=== PATIENT | female | born 1960 | race Caucasian/White ===

== ENCOUNTER 2016-04-28 10:18 | Observation (INO) | payer OTHER ==
[2016-04-28 11:04] LABS: HEMOGLOBIN 16.9 gm/dl (12.3-15.3); RED BLOOD COUNT 5.49 M/UL (4.00-5.10); WHITE BLOOD COUNT 5.8 K/UL (4.5-11.0)
[2016-04-28 11:19] LABS: BUN/CREATININE RATIO 17 (0-10)
[2016-04-28] MEDS ORDERED: HUMALOG100 UNIT/1 SQ ×2 (21:45→21:46)
[2016-04-28] MEDS ORDERED: HUMALOG100 UNIT/2 SQ (21:45)
[2016-04-28] MEDS ORDERED: TESSALON PERLE100 MG PO (21:47)
[2016-04-28] MEDS ORDERED: VENTOLIN/PROVE0.5 ML INH ×2 (21:47→21:49)
[2016-04-28] MEDS ORDERED: LANTUS100 UNIT/1 SQ (21:47)
[2016-04-28] MEDS ORDERED: CELEXA10 MG PO (21:47)
[2016-04-28] MEDS ORDERED: NEURONTIN 400400 MG PO (21:48)
[2016-04-28] MEDS ORDERED: LORTAB 5-325 M1 EACH PO (21:48)
[2016-04-28] MEDS ORDERED: BUSPAR 10MG10 MG PO (21:49)
[2016-08-09] MEDS ORDERED: MEDROL DOSEPAK 24 MG PO ×2 (17:25→18:05)
[2016-08-09] MEDS ORDERED: DULERA 100 MCG8.8 GM INH (18:07)
[2016-08-09] MEDS ORDERED: LEVEMIR FL100 UNIT/1 SQ (18:10)
== END 2016-04-29 00:20 | disposition left against medical advice (07) ==
LOC: ER1 10:18 → ZEROF 15:35 → M/S 20:48
PROVIDERS: Emergency Medicine; ADMIT Family Medicine
DX: J44.1 Chronic obstructive pulmonary disease with (acute) exacerbation (principal); J96.11 Chronic respiratory failure with hypoxia; D69.6 Thrombocytopenia, unspecified; D75.1 Secondary polycythemia; E11.9 Type 2 diabetes mellitus without complications; I11.0 Hypertensive heart disease with heart failure; I50.32 Chronic diastolic (congestive) heart failure; F41.9 Anxiety disorder, unspecified; E66.9 Obesity, unspecified; F17.210 Nicotine dependence, cigarettes, uncomplicated; Z82.5 Family history of asthma and other chronic lower respiratory diseases; Z82.49 Family history of ischemic heart disease and other diseases of the circulatory system; Z88.5 Allergy status to narcotic agent; Z90.49 Acquired absence of other specified parts of digestive tract; Z98.51 Tubal ligation status
CPT/HCPCS: 36415; 71020; 80053; 82803; 82962; 83605; 84484; 85025; 87040; 93005; 94640; 94660; 94664; 96361; 96372; 96374; 96376; 99284; G0378; J1815; J2930; J7040

== ENCOUNTER 2016-08-06 22:12 | Emergency (ER) | payer OTHER ==
[~2016-08-06 22:12] MED LIST: BUSPAR 10MG10 MG PO; CELEXA10 MG PO; HUMALOG100 UNIT/1 SQ; HUMALOG100 UNIT/2 SQ; LANTUS100 UNIT/1 SQ; LORTAB 5-325 M1 EACH PO; NEURONTIN 400400 MG PO; TESSALON PERLE100 MG PO; VENTOLIN/PROVE0.5 ML INH
[2016-08-09] MEDS ORDERED: MEDROL DOSEPAK 24 MG PO ×2 (17:25→18:05)
[2016-08-09] MEDS ORDERED: DULERA 100 MCG8.8 GM INH (18:07)
[2016-08-09] MEDS ORDERED: LEVEMIR FL100 UNIT/1 SQ (18:10)
== END 2016-08-07 00:03 | disposition left against medical advice (07) ==
LOC: ER1 22:12
DX: R06.02 Shortness of breath (principal); R05 Cough; R09.89 Other specified symptoms and signs involving the circulatory and respiratory systems; Z53.21 Procedure and treatment not carried out due to patient leaving prior to being seen by health care provider
CPT/HCPCS: 93005

== ENCOUNTER 2020-02-27 04:15 | Emergency (ER) | payer OTHER ==
[~2020-02-27 04:15] MED LIST changes: +ALBUTEROL2.5 MG/3 M INH; +ATROVENT HFA12.9 GM INH; +AZELASTINE137 MCG/0.; +AZITHROMYCIN500 MG PO; +CEFUROXIME500 MG PO; +CIPRO500 MG PO; +CLARITIN10 M2 PO; +COLACE 100MG C100 MG PO; +COMBIVENT0.074 GM/I INH; +CRESTOR 10 MG T10 MG PO; +CRESTOR10 MG PO; +CYMBALTA60 MG PO; +DOXYCYCLINE HY100 MG PO; +DULERA 100 MCG8.8 GM INH; +ECOTRIN81 MG PO; +FLOVENT 220.1 GM/INH INH; +FLOXIN 0.3% OTIC5 ML OP; +GLUCOPHAGE1000 MG PO; +HYDROCODON-ACE1 EAC2 PO; +HYDROCODON-ACE1 EAC6 PO; +HYSINGLA ER30 MG PO; +IBUPROFEN800 MG PO; +IPRAT-ALBUT 0.5-3 ML INH; +IPRATROPIU0.2 MG/1 M INH; +JARDIANCE25 MG PO; +LEVAQUIN500 MG PO; +LEVEMIR FL100 UNIT/1 SQ; +LISINOPRIL20 MG PO; +MEDROL DOSEPAK 24 MG PO; +MEDROL4 MG PO; +NEURONTIN 300300 MG PO; +NEURONTIN800 MG PO; +NICOTINE PATCH1 EAC2 TD; +OMNICEF 300 MG300 MG PO; +PATANOL OP SOLN5 ML EYEBOTH; +POLYMYXIN B-TMP10 ML OP; +PREDNISOLONE OD; +PREDNISONE 20 M20 MG GT; +PREDNISONE 20 M20 MG PO; +PREDNISONE 50 M50 MG PO; +PREDNISONE PO; +PREDNISONE10 MG PO; +PREDNISONE20 MG PO; +PREDNISONE50 MG PO; +PROTONIX40 MG PO; +PROVENTIL HFA6.7 GM INH; +ROBITUSSIN DM UD5 ML PO; +ROBITUSSIN100 MG/51 PO; +SPIRIVA RESPIMAT4 GM INH; +SULFACETAMIDE OD; +SYMBICORT 160-1 INHA INH; +SYMBICORT 16010.2 GM INH; +TAMIFLU75 MG PO; +VIBRAMYCIN 100100 MG PO; +VIBRAMYCIN100 MG PO; +ZITHROMAX1 GM PO; +ZITHROMAX250 MG PO; +ZOFRAN 4 MG TAB4 MG PO
[2020-02-27 04:44] LABS: HEMOGLOBIN 16.2 gm/dl (12.3-15.3); RED BLOOD COUNT 5.15 M/UL (4.00-5.10); WHITE BLOOD COUNT 7.6 K/UL (4.5-11.0)
[2020-02-27 05:07] LABS: BUN/CREATININE RATIO 25 (0-10)
[2020-02-27] MEDS ORDERED: PREDNISONE20 MG PO (05:49)
== END 2020-02-27 06:00 | disposition home or self-care (01) ==
LOC: ER1 04:15
PROVIDERS: Family Medicine
DX: J44.1 Chronic obstructive pulmonary disease with (acute) exacerbation (principal); I11.0 Hypertensive heart disease with heart failure; I50.9 Heart failure, unspecified; E11.9 Type 2 diabetes mellitus without complications; E66.9 Obesity, unspecified; F17.200 Nicotine dependence, unspecified, uncomplicated; Z88.5 Allergy status to narcotic agent
CPT/HCPCS: 80053; 82550; 82553; 84484; 85025; 93005; 96374; 99285; J2930

== ENCOUNTER 2020-03-11 04:01 | Emergency (ER) | payer OTHER ==
[2020-03-11 06:32] LABS: HEMOGLOBIN 16.3 gm/dl (12.3-15.3); RED BLOOD COUNT 5.12 M/UL (4.00-5.10); WHITE BLOOD COUNT 6.9 K/UL (4.5-11.0)
[2020-03-11 06:54] LABS: BUN/CREATININE RATIO 26 (0-10)
== END 2020-03-11 06:42 | disposition home or self-care (01) ==
LOC: ER1 04:01
PROVIDERS: Family Medicine
DX: J44.9 Chronic obstructive pulmonary disease, unspecified (principal); E11.9 Type 2 diabetes mellitus without complications; F17.200 Nicotine dependence, unspecified, uncomplicated; Z99.81 Dependence on supplemental oxygen; Z88.5 Allergy status to narcotic agent; Z79.899 Other long term (current) drug therapy; Z79.4 Long term (current) use of insulin; Z53.20 Procedure and treatment not carried out because of patient's decision for unspecified reasons
CPT/HCPCS: 80053; 82550; 82553; 83605; 83874; 83880; 84484; 85025; 93005; 94664; 99285; J2930

== ENCOUNTER 2020-04-11 18:05 | Emergency (ER) | payer OTHER | END 2020-04-11 20:32 | disposition left against medical advice (07) | LOC: ER1 18:05 | DX: Z53.21 Procedure and treatment not carried out due to patient leaving prior to being seen by health care provider (principal) | CPT/HCPCS: 71045 ==

== ENCOUNTER 2020-04-17 17:14 | Emergency (ER) | payer OTHER ==
[2020-04-17 19:29] LABS: HEMOGLOBIN 15.5 gm/dl (12.3-15.3); RED BLOOD COUNT 4.87 M/UL (4.00-5.10); WHITE BLOOD COUNT 8.4 K/UL (4.5-11.0)
[2020-04-17 19:43] LABS: BUN/CREATININE RATIO 23 (0-10)
[2020-04-17] MEDS ORDERED: PREDNISONE20 MG PO (19:59)
[2020-04-17] MEDS ORDERED: DOXYCYCLINE HY100 MG PO (19:59)
[2020-04-17] MEDS ORDERED: IPRAT-ALBUT 0.5-3 ML INH (20:00)
== END 2020-04-17 20:23 | disposition home or self-care (01) ==
LOC: ER1 17:14
PROVIDERS: Family Medicine
DX: J44.0 Chronic obstructive pulmonary disease with (acute) lower respiratory infection (principal); E11.65 Type 2 diabetes mellitus with hyperglycemia; E66.01 Morbid (severe) obesity due to excess calories; J18.9 Pneumonia, unspecified organism; R09.02 Hypoxemia; F17.200 Nicotine dependence, unspecified, uncomplicated; Z88.5 Allergy status to narcotic agent; Z79.4 Long term (current) use of insulin
CPT/HCPCS: 71045; 80048; 82550; 82553; 83874; 83880; 84484; 85025; 93005; 94640; 94664; 96374; 99285; J2930

== ENCOUNTER 2020-05-04 10:25 | Emergency (ER) | payer OTHER ==
[2020-05-04] MEDS ORDERED: VIBRAMYCIN100 MG PO (11:04)
[2020-05-04] MEDS ORDERED: IPRAT-ALBUT 0.5-3 ML INH (11:14)
== END 2020-05-04 11:30 | disposition home or self-care (01) ==
LOC: ER1 10:25
DX: J44.1 Chronic obstructive pulmonary disease with (acute) exacerbation (principal); J20.9 Acute bronchitis, unspecified; J44.0 Chronic obstructive pulmonary disease with (acute) lower respiratory infection; I11.0 Hypertensive heart disease with heart failure; I50.9 Heart failure, unspecified; E11.9 Type 2 diabetes mellitus without complications; E78.5 Hyperlipidemia, unspecified; K21.9 Gastro-esophageal reflux disease without esophagitis; Z88.5 Allergy status to narcotic agent
CPT/HCPCS: 94664; 96374; 99284; J1100

== ENCOUNTER 2020-05-13 14:11 | Emergency (ER) | payer OTHER ==
[2020-05-13 15:14] LABS: HEMOGLOBIN 15.6 gm/dl (12.3-15.3); RED BLOOD COUNT 4.93 M/UL (4.00-5.10); WHITE BLOOD COUNT 6.3 K/UL (4.5-11.0)
[2020-05-13 15:57] LABS: BUN/CREATININE RATIO 22 (0-10)
[2020-05-13] MEDS ORDERED: PREDNISONE20 MG PO (16:19)
[2020-05-13] MEDS ORDERED: AZITHROMYCIN250 MG PO (16:19)
== END 2020-05-13 16:31 | disposition home or self-care (01) ==
LOC: ER1 14:11
PROVIDERS: Family Medicine
DX: J44.1 Chronic obstructive pulmonary disease with (acute) exacerbation (principal); E10.65 Type 1 diabetes mellitus with hyperglycemia; F17.210 Nicotine dependence, cigarettes, uncomplicated; Z88.5 Allergy status to narcotic agent; Z79.899 Other long term (current) drug therapy
CPT/HCPCS: 71045; 80053; 82550; 82553; 83874; 83880; 84484; 85025; 94664; 94760; 96374; 99285; J2930

== ENCOUNTER 2020-06-24 21:12 | Emergency (ER) | payer OTHER ==
[~2020-06-24 21:12] MED LIST changes: +AZITHROMYCIN250 MG PO
[2020-06-24 22:32] LABS: HEMOGLOBIN 15.3 gm/dl (12.3-15.3); RED BLOOD COUNT 4.8 M/UL (4.00-5.10); WHITE BLOOD COUNT 6.8 K/UL (4.5-11.0)
[2020-06-24 22:55] LABS: BUN/CREATININE RATIO 25 (0-10)
[2020-06-25] MEDS ORDERED: PREDNISONE20 MG PO (01:59)
== END 2020-06-25 02:05 | disposition home or self-care (01) ==
LOC: ER1 21:12
PROVIDERS: Physician Assistant
DX: J44.1 Chronic obstructive pulmonary disease with (acute) exacerbation (principal); J96.11 Chronic respiratory failure with hypoxia; E11.65 Type 2 diabetes mellitus with hyperglycemia; E78.5 Hyperlipidemia, unspecified; I50.9 Heart failure, unspecified; Z90.49 Acquired absence of other specified parts of digestive tract; F17.200 Nicotine dependence, unspecified, uncomplicated; Z88.5 Allergy status to narcotic agent
CPT/HCPCS: 71045; 80053; 82550; 82553; 83874; 83880; 84484; 85025; 85610; 85730; 93005; 94640; 94664; 96374; 99285; J2930

== ENCOUNTER 2020-07-06 06:45 | Emergency (ER) | payer OTHER ==
[2020-07-06 08:13] LABS: HEMOGLOBIN 15.4 gm/dl (12.3-15.3); RED BLOOD COUNT 4.91 M/UL (4.00-5.10); WHITE BLOOD COUNT 7.1 K/UL (4.5-11.0)
[2020-07-06 08:30] LABS: BUN/CREATININE RATIO 25 (0-10)
== END 2020-07-06 08:04 | disposition left against medical advice (07) ==
LOC: ER1 06:45
PROVIDERS: Internal Medicine
DX: J44.1 Chronic obstructive pulmonary disease with (acute) exacerbation (principal); I11.0 Hypertensive heart disease with heart failure; I50.9 Heart failure, unspecified; E11.9 Type 2 diabetes mellitus without complications; F17.210 Nicotine dependence, cigarettes, uncomplicated; Z90.49 Acquired absence of other specified parts of digestive tract; Z88.5 Allergy status to narcotic agent
CPT/HCPCS: 36600; 71046; 80053; 82803; 83880; 84484; 85025; 94664; 96374; 99285; J2930

== ENCOUNTER 2020-07-17 19:36 | Emergency (ER) | payer OTHER ==
[2020-07-17] MEDS ORDERED: PREDNISONE 20 M20 MG PO (20:58)
[2020-07-17] MEDS ORDERED: IPRAT-ALBUT 0.5-3 ML INH (20:59)
[2020-07-17] MEDS ORDERED: CLARITIN10 M2 PO (20:59)
== END 2020-07-17 19:38 | disposition home or self-care (01) ==
LOC: ER1 19:36
DX: J44.1 Chronic obstructive pulmonary disease with (acute) exacerbation (principal); E11.9 Type 2 diabetes mellitus without complications; F17.200 Nicotine dependence, unspecified, uncomplicated; Z88.5 Allergy status to narcotic agent; Z79.899 Other long term (current) drug therapy
CPT/HCPCS: 94664; 94760; 96372; 99284; J2930

== ENCOUNTER 2020-08-13 07:06 | Emergency (ER) | payer OTHER ==
[2020-08-13 08:14] LABS: HEMOGLOBIN 15.8 gm/dl (12.3-15.3); RED BLOOD COUNT 4.96 M/UL (4.00-5.10); WHITE BLOOD COUNT 6.1 K/UL (4.5-11.0)
[2020-08-13 08:41] LABS: BUN/CREATININE RATIO 28 (0-10)
[2020-08-13] MEDS ORDERED: PREDNISONE20 MG PO (09:24)
[2020-08-13] MEDS ORDERED: DOXYCYCLINE HY100 MG PO (09:24)
== END 2020-08-13 09:33 | disposition home or self-care (01) ==
LOC: ER1 07:06
PROVIDERS: Family Medicine
DX: J96.11 Chronic respiratory failure with hypoxia (principal); J44.1 Chronic obstructive pulmonary disease with (acute) exacerbation; E11.65 Type 2 diabetes mellitus with hyperglycemia; I10 Essential (primary) hypertension; F17.200 Nicotine dependence, unspecified, uncomplicated; Z88.5 Allergy status to narcotic agent
CPT/HCPCS: 71045; 80053; 82550; 82553; 83874; 83880; 84484; 85025; 93005; 94644; 94664; 94760; 96374; 99285; J2930

== ENCOUNTER 2020-08-30 22:42 | Emergency (ER) | payer OTHER ==
[2020-08-31 01:45] LABS: HEMOGLOBIN 16.3 gm/dl (12.3-15.3); RED BLOOD COUNT 5.15 M/UL (4.00-5.10); WHITE BLOOD COUNT 8.3 K/UL (4.5-11.0)
[2020-08-31 02:03] LABS: BUN/CREATININE RATIO 24 (0-10)
[2020-08-31] MEDS ORDERED: PROAIR DIGIHAL90 MCG INH (02:50)
== END 2020-08-31 03:05 | disposition home or self-care (01) ==
LOC: ER1 22:42
PROVIDERS: Emergency Medicine
DX: J44.1 Chronic obstructive pulmonary disease with (acute) exacerbation (principal); F17.200 Nicotine dependence, unspecified, uncomplicated; I11.0 Hypertensive heart disease with heart failure; I50.9 Heart failure, unspecified; E11.9 Type 2 diabetes mellitus without complications; Z20.822 Contact with and (suspected) exposure to COVID-19
CPT/HCPCS: 0240U; 71045; 80053; 82550; 82553; 83605; 84484; 85025; 93005; 94664; 99285; J2930; Q9967

== ENCOUNTER 2020-09-10 17:30 | Emergency (ER) | payer OTHER ==
[~2020-09-10 17:30] MED LIST changes: +PROAIR DIGIHAL90 MCG INH
[2020-09-10] MEDS ORDERED: PREDNISONE 20 M20 MG PO (18:41)
[2020-09-10] MEDS ORDERED: VIBRAMYCIN 100100 MG PO (18:41)
== END 2020-09-10 19:00 | disposition home or self-care (01) ==
LOC: ER1 17:30
DX: J44.1 Chronic obstructive pulmonary disease with (acute) exacerbation (principal)
CPT/HCPCS: 94640; 94664; 96374; 99284; J2930

== ENCOUNTER 2020-09-27 11:16 | Emergency (ER) | payer OTHER ==
[2020-09-27 13:32] LABS: HEMOGLOBIN 15.8 gm/dl (12.3-15.3); RED BLOOD COUNT 4.97 M/UL (4.00-5.10); WHITE BLOOD COUNT 9.2 K/UL (4.5-11.0)
[2020-09-27 14:06] LABS: BUN/CREATININE RATIO 24 (0-10)
== END 2020-09-27 12:20 | disposition left against medical advice (07) ==
LOC: ER1 11:16
PROVIDERS: Emergency Medicine
DX: R06.02 Shortness of breath (principal); J44.9 Chronic obstructive pulmonary disease, unspecified; I11.0 Hypertensive heart disease with heart failure; I50.9 Heart failure, unspecified; E11.9 Type 2 diabetes mellitus without complications
CPT/HCPCS: 80053; 82550; 82553; 83735; 83874; 83880; 84484; 85025; 94640; 94664; 96374; 99285; J2930

== ENCOUNTER 2020-10-01 09:37 | Emergency (ER) | payer OTHER ==
[2020-10-01 11:00] LABS: HEMOGLOBIN 15.8 gm/dl (12.3-15.3); RED BLOOD COUNT 5.02 M/UL (4.00-5.10); WHITE BLOOD COUNT 7.9 K/UL (4.5-11.0)
[2020-10-01 11:33] LABS: BUN/CREATININE RATIO 24 (0-10)
[2020-10-01] MEDS ORDERED: PREDNISONE50 MG PO (12:35)
[2020-10-01] MEDS ORDERED: DOXYCYCLINE HY100 M3 PO (12:35)
== END 2020-10-01 12:48 | disposition left against medical advice (07) ==
LOC: ER1 09:37
PROVIDERS: Emergency Medicine
DX: J44.9 Chronic obstructive pulmonary disease, unspecified (principal); Z20.822 Contact with and (suspected) exposure to COVID-19; Z87.891 Personal history of nicotine dependence
CPT/HCPCS: 71045; 80053; 82550; 82553; 83874; 83880; 84484; 85025; 93005; 96374; 99285; J2930; U0002

== ENCOUNTER 2020-11-19 14:25 | Emergency (ER) | payer OTHER ==
[~2020-11-19 14:25] MED LIST changes: +DOXYCYCLINE HY100 M3 PO
[2020-11-19 16:00] LABS: HEMOGLOBIN 16.3 gm/dl (12.3-15.3); RED BLOOD COUNT 5.07 M/UL (4.00-5.10); WHITE BLOOD COUNT 7.7 K/UL (4.5-11.0)
[2020-11-19 16:23] LABS: BUN/CREATININE RATIO 16 (0-10)
[2020-11-19] MEDS ORDERED: DOXYCYCLINE HY100 MG PO (17:32)
[2020-11-21 02:21] LABS: ACINETOBACTER BAUMANNII Not Detected (Negative); CANDIDA ALBICANS Not Detected (Negative); CANDIDA KRUSEI Not Detected (Negative); CANDIDA TROPICALIS Not Detected (Negative); ENTEROCOCCUS Not Detected (Negative); ESCHERICHIA COLI Not Detected (Negative); HAEMOPHILUS INFLUENZAE Not Detected (Negative); KLEBSIELLA OXYTOCA Not Detected (Negative); KLEBSIELLA PNEUMONIAE Not Detected (Negative); KPC-CARBAPENEM-RESISTANCE GENE Not Detected (Negative); PROTEUS Not Detected (Negative); PSEUDOMONAS AERUGINOSA Not Detected (Negative); SERRATIA MARCESANS Not Detected (Negative); STAPHYLOCOCCUS AUREUS Not Detected (Negative); STREP AGALACTIAE (GROUP B) Not Detected (Negative); STREP PYOGENES (GROUP A) Not Detected (Negative); STREPTOCOCCUS Not Detected (Negative); vanA/B (VANCOMYCIN RESIST GENE Not Detected (Negative)
[2020-11-21 02:23] LABS: mecA (METHICILLIN RESIST GENE DETECTED (Negative)
[2020-11-21 02:24] LABS: STAPHYLOCOCCUS DETECTED (Negative)
== END 2020-11-19 15:45 | disposition home or self-care (01) ==
LOC: ER1 14:25
PROVIDERS: Emergency Medicine
DX: U07.1 COVID-19 (principal); J12.82 Pneumonia due to coronavirus disease 2019; Z20.822 Contact with and (suspected) exposure to COVID-19
CPT/HCPCS: 36600; 71045; 80053; 82550; 82553; 82803; 83605; 83874; 83880; 84484; 85025; 87040; 87150; 93005; 94640; 94664; 94760; 96374; 96375; 99285; J0696; J2930; U0002

== ENCOUNTER 2020-12-15 18:57 | Emergency (ER) | payer OTHER ==
[2020-12-15 19:26] LABS: HEMOGLOBIN 16.3 gm/dl (12.3-15.3); RED BLOOD COUNT 5.01 M/UL (4.00-5.10); WHITE BLOOD COUNT 9.5 K/UL (4.5-11.0)
[2020-12-15 20:11] LABS: BUN/CREATININE RATIO 19 (0-10)
[2020-12-15] MEDS ORDERED: PREDNISONE20 MG PO (21:01)
[2020-12-15] MEDS ORDERED: AUGMENTIN 875-1 EACH PO (21:01)
[2020-12-15] MEDS ORDERED: MUCINEX600 MG PO (21:01)
== END 2020-12-15 21:30 | disposition home or self-care (01) ==
LOC: ER1 18:57
PROVIDERS: Nurse Practitioner
DX: J44.1 Chronic obstructive pulmonary disease with (acute) exacerbation (principal); N39.0 Urinary tract infection, site not specified; I50.9 Heart failure, unspecified; E78.5 Hyperlipidemia, unspecified; E03.9 Hypothyroidism, unspecified; Z88.6 Allergy status to analgesic agent; Z20.822 Contact with and (suspected) exposure to COVID-19
CPT/HCPCS: 36600; 71045; 80053; 81001; 82550; 82553; 82803; 83605; 83874; 83880; 84484; 85025; 85379; 85610; 87040; 93005; 94664; 96374; 96375; 99285; J1940; J2930; U0002

== ENCOUNTER 2021-01-09 14:58 | Emergency (ER) | payer OTHER ==
[~2021-01-09 14:58] MED LIST changes: +AUGMENTIN 875-1 EACH PO; +MUCINEX600 MG PO
[2021-01-09] MEDS ORDERED: PULMICORT FLEX90 MCG INH (16:08)
[2021-01-09] MEDS ORDERED: AMOXICILLIN500 M1 PO (16:08)
[2021-01-09] MEDS ORDERED: PREDNISONE 20 M20 MG GT (16:08)
== END 2021-01-09 16:15 | disposition home or self-care (01) ==
LOC: ER1 14:58
DX: J44.1 Chronic obstructive pulmonary disease with (acute) exacerbation (principal); F17.210 Nicotine dependence, cigarettes, uncomplicated; I50.9 Heart failure, unspecified; E11.9 Type 2 diabetes mellitus without complications
CPT/HCPCS: 93005; 94640; 94664; 96374; 99284; J2930

== ENCOUNTER 2021-01-25 12:37 | Emergency (ER) | payer OTHER ==
[~2021-01-25 12:37] MED LIST changes: +AMOXICILLIN500 M1 PO; +PULMICORT FLEX90 MCG INH
[2021-01-25 13:13] LABS: HEMOGLOBIN 16.9 gm/dl (12.3-15.3); RED BLOOD COUNT 5.17 M/UL (4.00-5.10); WHITE BLOOD COUNT 9.7 K/UL (4.5-11.0)
[2021-01-25 13:36] LABS: BUN/CREATININE RATIO 26 (0-10)
[2021-01-25] MEDS ORDERED: PREDNISONE20 MG PO (15:01)
== END 2021-01-25 14:45 | disposition home or self-care (01) ==
LOC: ER1 12:37
PROVIDERS: Family Medicine
DX: J44.1 Chronic obstructive pulmonary disease with (acute) exacerbation (principal); E11.9 Type 2 diabetes mellitus without complications; E66.9 Obesity, unspecified; I10 Essential (primary) hypertension; Z20.822 Contact with and (suspected) exposure to COVID-19
CPT/HCPCS: 0240U; 71045; 80053; 82550; 82553; 83605; 84484; 85025; 94640; 94664; 96374; 99285; J2930

== ENCOUNTER 2021-02-08 11:02 | Emergency (ER) | payer OTHER ==
[2021-02-08 12:34] LABS: HEMOGLOBIN 16.9 gm/dl (12.3-15.3); RED BLOOD COUNT 5.22 M/UL (4.00-5.10); WHITE BLOOD COUNT 8.3 K/UL (4.5-11.0)
[2021-02-08 13:32] LABS: BUN/CREATININE RATIO 25 (0-10)
[2021-02-08] MEDS ORDERED: PREDNISONE20 MG PO (14:45)
== END 2021-02-08 15:09 | disposition home or self-care (01) ==
LOC: ER1 11:02
PROVIDERS: Family Medicine
DX: J44.1 Chronic obstructive pulmonary disease with (acute) exacerbation (principal); E11.9 Type 2 diabetes mellitus without complications; F17.200 Nicotine dependence, unspecified, uncomplicated; Z20.822 Contact with and (suspected) exposure to COVID-19; Z99.81 Dependence on supplemental oxygen
CPT/HCPCS: 71045; 80048; 82550; 82553; 83874; 84484; 85025; 93005; 94664; 94760; 99285; U0002

== ENCOUNTER 2021-03-26 16:17 | Emergency (ER) | payer OTHER ==
[2021-03-26 18:06] LABS: HEMOGLOBIN 15.2 gm/dl (12.3-15.3); RED BLOOD COUNT 4.87 M/UL (4.00-5.10); WHITE BLOOD COUNT 8.1 K/UL (4.5-11.0)
[2021-03-26 18:30] LABS: BUN/CREATININE RATIO 11 (0-10)
== END 2021-03-26 21:00 | disposition left against medical advice (07) ==
LOC: ER1 16:17
PROVIDERS: Physician Assistant Medical
DX: R06.02 Shortness of breath (principal); I11.0 Hypertensive heart disease with heart failure; I50.9 Heart failure, unspecified; E11.9 Type 2 diabetes mellitus without complications; Z20.822 Contact with and (suspected) exposure to COVID-19; J44.9 Chronic obstructive pulmonary disease, unspecified; Z90.49 Acquired absence of other specified parts of digestive tract; Z88.5 Allergy status to narcotic agent; F17.200 Nicotine dependence, unspecified, uncomplicated
CPT/HCPCS: 36600; 71045; 80053; 82803; 83880; 85025; 99283; U0002